=== PATIENT | male | born 1990 | race Caucasian/White ===

== ENCOUNTER 2017-04-12 | Emergency (ER) | payer OTHER ==
[~2017-04-12] VITALS: Ht 170.2 cm; Wt 84.5 kg
[~2017-04-12] MED LIST: IBUP-1050 PO
[2017-04-12] MEDS ORDERED: SODIUM CHLORIDE 0.9% 1000ML 1,000 ML IV STA ×2 (00:07→00:49)
[2017-04-12 00:14] VITALS: TEMP 36.5; O2SAT 100; Ht 170.2 cm; Wt 84.5 kg
[2017-04-12 00:25] LABS: BASO % 0.4 %; BASO ABS # 0.04 K/uL (0-0.2); EOS % 3.7 %; EOS ABS # 0.35 K/uL (0-0.5); HEMATOCRIT 43.4 % (42-52); HEMOGLOBIN 15.7 g/dL (14.0-18.0); IG# 0.01 K/uL (0.00-0.02); LYMPH % 33.3 %; LYMPH ABS # 3.14 K/uL (1.2-3.4); MEAN CELL VOLUME 81.4 fL (80-100); MEAN CORPUSCULAR HEMOGLOBIN 29.5 pg (25-34); MEAN CORPUSCULAR HGB CONC 36.2 g/dl (32-36); MEAN PLATELET VOLUME 9.9 fL (7.4-10.4); MONO % 10.1 %; MONO ABS # 0.95 K/uL (0.11-0.59); NEUT % 52.4 %; NEUT ABS # 4.95 K/uL (1.4-6.5); PLATELET COUNT 294 K/uL (130-400); RED CELL DISTRIBUTION WIDTH CV 12.3 % (11.5-14.5); RED CELL DISTRIBUTION WIDTH SD 36.5 fL (36.4-46.3); WHITE BLOOD COUNT 9.44 K/uL (4.8-10.8)
[2017-04-12 00:36] LABS: PTT PATIENT 25.8 SECONDS (21.0-31.0)
[2017-04-12 00:42] LABS: ALBUMIN 4.3 gm/dl (3.4-5.0); CALCIUM 8.9 mg/dl (8.5-10.1); CREATININE 1.02 mg/dl (0.60-1.40); POTASSIUM 3.3 mmol/L (3.5-5.1)
[2017-04-12] MEDS ORDERED: POTASSIUM CHLORIDE 10 MEQ TABCR PO STA (00:49)
[2017-04-12 00:53] LABS: PHOSPHORUS 2.4 mg/dl (2.5-4.9); TOTAL PROTEIN 8.2 gm/dl (6.4-8.2)
[2017-04-12] MEDS ORDERED: ONDANSETRON HOME PACK 4MG OD TAB PO ONE (02:15)
[2017-04-12 02:31] VITALS: BP 130/66; PULSE 81; O2SAT 98
[2017-04-12 02:39] LABS: HEP C IGG 13 YRS+OLDER_RFLX NEG (NEG)
--- NOTE | 2017-04-12 02:57 | EMERGENCY ROOM VISIT NOTE ---
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 Patient states he was working all day, 12 hour shift, at the [employer] where it is very hot and did not drink hardly anything. He states he got home and had steak and potatoes and then decided to have a couple beers and shots with his friends. He then went to the bathroom to vomit and did this twice and then briefly passed out as he could feel himself feeling lightheaded before the syncopal event. The fianc witnessed this. No prior syncopal episodes. No chest pain prior to the syncopal episode. He then crawled from the bedroom to his bed to lay down. EMS was then summoned. Patient and fianc adamantly deny seizure or seizure-like activity. 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 He follows with [facility]. He has not seen them in 6 years. Patient denies chest pain, dyspnea, headache, neck pain, back pain, abdominal pain, numbness, tingling or any other medical complaints. He states he does not normally drink alcohol. No drugs today. He does chew tobacco. Review of Systems An 10 system review of systems was completed with positives and pertinent negatives listed in the HPI. Past Medical/Surgical History Medical Problems: (1) Acute pharyngitis (2) Fx dist phalanx, hand-closed (3) Laceration of thumb with tendon involvement (4) Non-cardiac chest pain Family History No significant family history Social History Smoking Status: Former Smoker Drug Use: none Marital Status: single Occupation Status: employed Current/Historical Medications No Active Prescriptions or Reported Meds Physical Exam Vital Signs Date Time Temp Pulse Resp B/P (MAP) Pulse Ox O2 Delivery O2 Flow Rate FiO2 04/12/17 02:31 81 16 130/66 98 04/12/17 01:43 85 16 133/69 99 Room Air 04/12/17 01:08 81 20 108/63 99 Room Air 04/12/17 00:46 79 18 108/63 99 Room Air 04/12/17 00:24 80 101/67 86 75/52 04/12/17 00:14 36.5 92 22 115/67 100 Room Air 04/12/17 00:14 Room Air 04/12/17 00:14 100 Room Air 04/12/17 00:14 36.5 100 22 115/67 100 Room Air 04/12/17 00:08 89 Physical Exam PHYSICAL EXAM: VITALS: Vitals are noted on the nurse's note and reviewed by myself. Vital signs stable. GENERAL: White male with EtOH odor, in no acute distress, nondiaphoretic, well- developed well-nourished. SKIN: The skin was without obvious lacerations or abrasions. Capillary reflex less than 2 seconds. HEAD: Normocephalic atraumatic. EARS: External auditory canals clear, tympanic membranes pearly pichardo without erythema or effusion bilaterally. No hemotympanums. No ocampo sign. No mastoid tenderness. EYES: Pupils equal round and reactive to light and accommodation. Conjunctivae without injection, sclerae without icterus. Extraocular movements intact. NOSE: Patent, turbinates without inflammation or discharge. No sinus tenderness. No septal hematoma or bleeding. MOUTH: Mucous membranes moist. Pharynx without erythema or exudate. Uvula midline. Airway patent. Tongue does not deviate. NECK: Supple without nuchal rigidity. Cervical spine is nontender. Full range of motion of the neck without tenderness. No JVD. HEART: Regular rate and rhythm without murmurs gallops or rubs. LUNGS: Clear to auscultation bilaterally without wheezes, rales or rhonchi. No dullness to percussion. No retractions or accessory muscle use. No chest wall tenderness. ABDOMEN: Positive bowel sounds x 4. Normal tympanic percussion. Soft, nontender, without masses or organomegaly. No guarding or rebound tenderness. MUSCULOSKELETAL: No tenderness of the thoracic or lumbar spine. Full range of motion without tenderness to palpation in all extremities. Normal gait. Strength 5/5 throughout. Peripheral pulses 2+. NEURO: Patient was alert and oriented to person place and time. Normal Mini- Mental status exam. Normal sensation to light and sharp touch. Cerebellar function intact. No focal neurological deficits. Medical Decision & Procedures Laboratory Results 04/12/17 00:15 Red Blood Count 5.33, Mean Corpuscular Volume 81.4, Mean Corpuscular Hemoglobin 29.5, Mean Corpuscular Hemoglobin Concent 36.2, Mean Platelet Volume 9.9, Neutrophils (%) (Auto) 52.4, Lymphocytes (%) (Auto) 33.3, Monocytes (%) (Auto) 10.1, Eosinophils (%) (Auto) 3.7, Basophils (%) (Auto) 0.4, Neutrophils # (Auto ) 4.95, Lymphocytes # (Auto) 3.14, Monocytes # (Auto) 0.95, Eosinophils # (Auto ) 0.35, Basophils # (Auto) 0.04 04/12/17 00:15 Test 04/12/17 00:07 04/12/17 00:15 White Blood Count 9.44 K/uL (4.8-10.8) Red Blood Count 5.33 M/uL (4.7-6.1) Hemoglobin 15.7 g/dL (14.0-18.0) Hematocrit 43.4 % (42-52) Mean Corpuscular Volume 81.4 fL (80-100) Mean Corpuscular Hemoglobin 29.5 pg (25-34) Mean Corpuscular Hemoglobin Concent 36.2 g/dl (32-36) Platelet Count 294 K/uL (130-400) Mean Platelet Volume 9.9 fL (7.4-10.4) Neutrophils (%) (Auto) 52.4 % Lymphocytes (%) (Auto) 33.3 % Monocytes (%) (Auto) 10.1 % Eosinophils (%) (Auto) 3.7 % Basophils (%) (Auto) 0.4 % Neutrophils # (Auto) 4.95 K/uL (1.4-6.5) Lymphocytes # (Auto) 3.14 K/uL (1.2-3.4) Monocytes # (Auto) 0.95 K/uL (0.11-0.59) Eosinophils # (Auto) 0.35 K/uL (0-0.5) Basophils # (Auto) 0.04 K/uL (0-0.2) RDW Standard Deviation 36.5 fL (36.4-46.3) RDW Coefficient of Variation 12.3 % (11.5-14.5) Immature Granulocyte % (Auto) 0.1 % Immature Granulocyte # (Auto) 0.01 K/uL (0.00-0.02) Prothrombin Time 10.9 SECONDS (9.0-12.0) Prothromb Time International Ratio 1.0 (0.9-1.1) Activated Partial Thromboplast Time 25.8 SECONDS (21.0-31.0) Partial Thromboplastin Ratio 1.0 Anion Gap 14.0 mmol/L (3-11) Est Creatinine Clear Calc Drug Dose 116.0 ml/min Estimated GFR () 118.7 Estimated GFR (Non- 102.4 BUN/Creatinine Ratio 11.7 (10-20) Calcium Level 8.9 mg/dl (8.5-10.1) Phosphorus Level 2.4 mg/dl (2.5-4.9) Magnesium Level 2.4 mg/dl (1.8-2.4) Total Bilirubin 0.5 mg/dl (0.2-1) Direct Bilirubin 0.1 mg/dl (0-0.2) Aspartate Amino Transf (AST/SGOT) 45 U/L (15-37) Alanine Aminotransferase (ALT/SGPT) 108 U/L (12-78) Alkaline Phosphatase 82 U/L (45-117) Total Protein 8.2 gm/dl (6.4-8.2) Albumin 4.3 gm/dl (3.4-5.0) Thyroid Stimulating Hormone (TSH) 1.820 uIu/ml (0.300-4.500) Ethyl Alcohol mg/dL 177.0 mg/dl (0-3) Hepatitis B Surface Antigen NEG (NEG) Hepatitis C Antibody NEG (NEG) Medications Administered Medications (Trade) Dose Ordered Sig/Lorraine Route Start Time Stop Time Status Last Admin Dose Admin Sodium Chloride 1,000 ml @ 999 mls/hr Q1H1M STAT IV 04/12/17 00:07 04/12/17 01:07 DC 04/12/17 00:07 999 MLS/HR Sodium Chloride 1,000 ml @ 999 mls/hr Q1H1M STAT IV 04/12/17 00:49 04/12/17 01:49 DC 04/12/17 00:56 999 MLS/HR Potassium Chloride (Klor-Con M10) 20 meq NOW STAT PO 04/12/17 00:49 04/12/17 00:50 DC 04/12/17 00:56 20 MEQ Ondansetron HCl (ZOFRAN ODT 4MG Home Pack) 1 homepack UD ONCE PO 04/12/17 02:15 04/12/17 02:16 DC 04/12/17 02:15 1 HOMEPACK ED Course Prior records/ancillary studies reviewed. Triage Nursing notes reviewed. Additional history obtained from wil The patient's history was concerning for nausea vomiting and syncope. Differential diagnosis: Etiologies such as vasovagal event, infection, hypoglycemia, electrolyte abnormalities, cardiac sources, intracerebral event, toxicologic, neurologic, as well as others were entertained. Physical examination: Patient is alert, interactive and well-appearing ER treatment provided: IV hydration with normal saline On reassessment the patient felt better. Diagnostics interpretation by me: ECG: Normal sinus, normal intervals, no acute ST-T wave changes. Impression normal sinus rhythm interval by myself The labs revealed alcohol of 177, low potassium this is replaced orally. Imaging studies: Chest x-ray with no acute consolidation, pneumothorax or free of my interpretation Head CT with slit like ventricles. Right transparietal IT PROJECT COORDINATOR shunt terminates in the left frontal horn. No hydrocephalus or hemorrhage This appears to be consistent with nausea vomiting and syncope most likely from dehydration. Patient was orthostatic positive. He was given 2 L of fluids. He was drinking without difficulties. He felt much better. He was able to ambulate without difficulties. He was strongly encouraged to avoid alcohol excess in the future. He was advised to follow-up in the care in a few days or here in the ER sooner for syncope, chest pains, worsening signs or symptoms or as needed. Patient was neurovascularly and neurologically intact. He is well- appearing. He had a normal EKG. No acute findings on laboratory testing besides the alcohol. Patient was not drinking hardly any fluids all day and is working inside a hot plant. He then decided to drink alcohol. I believe his syncopal episode was from dehydration and excessive alcohol use. By the evaluation outlined above emergent etiologies such as infection, hypoglycemia, electrolyte abnormalities, cardiac sources, intracerebral event, toxicologic, neurologic,as well as others were deemed relatively unlikely. The pt informed about the findings as listed above. All questions were answered and pleased with the treatment. Return instructions were outlined and the patient was discharged in stable condition. Outpatient prescription management: Zofran Referral: The patient was referred back to their primary care physician for follow-up in 2 to 3 days for a recheck of the current condition. Case reviewed with my attending The chart was completed utilizing [employer] voice recognition software. Grammatical errors, random word insertions, pronoun errors, and incomplete sentences are an occassional consequence of this system due to software limitations, ambient noise, and hardware issues. Any formal questions or concerns about the content, text, or information contained within the body of this dictation should be directly addressed to the physician anesthesiology physician assistant for clarification. Medical Decision as above Head Trauma GCS Score: 15 Medication Reconcilliation Current Medication List: was personally reviewed by me Blood Pressure Screening Patient's blood pressure: Normal blood pressure Impression Primary Impression: Syncope Additional Impression: Dehydration Departure Information Dispostion Home / Self-Care Condition GOOD Prescriptions No Active Prescriptions or Reported Meds Forms HOME CARE DOCUMENTATION FORM, IMPORTANT VISIT INFORMATION Patient Instructions Syncope, Dehydration, My [facility] Additional Instructions DO NOT drive, drink alcohol, operate machinery, or perform dangerous activities today. You were given medications in the ER that can affect your ability to safely function or operate a vehicle. Recommend no alcohol. Zofran(odansetron) tablets 4mg: Take one and allow it to dissolve in your mouth every four to six hours as needed for nausea or vomiting Rest and drink plenty of fluids as tolerated. Slow sips of water or sports drinks are recommended instead of large amounts all at once. Continue current medications. Once your stomach is settled start with a clear liquid diet (jello, soup broth, etc.) and then advance as tolerated. You should avoid full, heavy meals for about 24 hrs from the time your symptoms resolved. Return to the ER for persistent vomiting, fevers, abdominal pain, chest pains, difficulty breathing, black or bloody stools, worsening of your condition, or as needed. Follow up with your primary physician in 2-3 days for a recheck of your current condition and for further workup for your passing out episode that most likely was from dehydration. Problem Qualifiers Primary Impression: Syncope Syncope type: unspecified Qualified Codes: R55 - Syncope and collapse
--- NOTE | 2017-04-12 06:54 | DIAGNOSTIC IMAGING REPORT ---
CHEST ONE VIEW PORTABLE HISTORY: 26 years-old Male ?syncope/seizure acute seizure with syncope COMPARISON: Chest radiograph 08/19/2014 TECHNIQUE: Portable AP view of the chest FINDINGS: Cardiomediastinal and hilar silhouettes are within normal limits. There is no pneumothorax, pleural effusion, focal airspace consolidation or overt pulmonary edema. The bones of the chest appear grossly intact. IMPRESSION: No acute process. The above report was generated using voice recognition software. It may contain grammatical, syntax or spelling errors. Electronically signed by: Judson Sharma M.D. 04/12/2017 6:53 AM Dictated Date/Time: 04/12/2017 6:52 AM
--- NOTE | 2017-04-12 07:11 | DIAGNOSTIC IMAGING REPORT ---
HEAD WITHOUT CONTRAST (CT) CLINICAL HISTORY: 26 years-old Male presenting with seizure, shunt inplace. TECHNIQUE: Multidetector CT imaging of the head was performed without the use of intravenous contrast. IV contrast: None. A dose lowering technique was used consistent with the principles of ALARA (as low as reasonably achievable). COMPARISON: None. CT DOSE (mGy.cm): The estimated cumulative dose is 614.27 mGy.cm. FINDINGS: Metabolic Specialist topogram: Ventriculostomy shunt catheter in place. Ventricular decompression with a right transparietal ventriculostomy shunt catheter terminating in the frontal horn of the left lateral ventricle. Brain parenchyma normal in appearance with preserved pichardo-white differentiation. No mass effect or midline shift. No hemorrhage or acute territorial infarct. No extra-axial fluid collection. Paranasal sinuses and mastoid air cells clear. Chad hole noted in the region of the midline lambdoid suture. IMPRESSION: 1. No acute intracranial abnormality. Ventricular decompression with a ventriculostomy shunt catheter in place. Electronically signed by: Dale Golden M.D. 04/12/2017 7:10 AM Dictated Date/Time: 04/12/2017 7:04 AM
[2017-04-13 12:24] LABS: HEPATITIS A IGM TC 51813E NON-REACTIVE (NON-REACTIVE); HEPATITIS B CORE IGM TC51854R NON-REACTIVE (NON-REACTIVE)
== END 2017-04-12 02:32 | disposition home or self-care (01) ==
LOC: EDBD → C.EDA 00:01
DX: R55 Syncope and collapse (principal); E86.0 Dehydration; Z87.891 Personal history of nicotine dependence